=== PATIENT | male | born 1955 ===

== ENCOUNTER 2019-11-23 12:22 | Outpatient (CLI) | payer OTHER ==
[2019-11-23 20:11] LABS: SARS-CoV-2 IgG Ab Non-Reactive (NonReactive); SARS-CoV-2 IgG Index 0.01 S/CO (< 1.40)
== END 2019-11-23 12:23 | disposition home or self-care (01) ==
LOC: SCSLAB 12:22
PROVIDERS: ATTEND Otolaryngology Plastic Surgery within the Head & Neck
DX: Z01.818 Encounter for other preprocedural examination (principal); Z11.59 Encounter for screening for other viral diseases; J38.3 Other diseases of vocal cords; R49.0 Dysphonia
CPT/HCPCS: 86769; 93005; 93010